=== PATIENT | male | born 1965 | race Caucasian/White ===

== ENCOUNTER 2017-01-07 10:09 | Outpatient (CLI) | payer MEDICARE, BC ==
[~2017-01-07] VITALS: Ht 165.1 cm; Wt 64.3 kg
[~2017-01-07 10:09] MED LIST: BENA20TA48 PO; BUPR150T18 PO; CHOL50009 PO; CLON2TAB3 PO; CYAN500T46 PO; FAMO-96 PO; FER325 PO; FLUO10TA PO; FLUR30CA12 PO; FOLI-49 PO; HYDR-3498 PO; HYDR-906 PO; INSU100C5 SQ; INSU100I14 SQ; MAG355OR15 PO; METO5TAB58 PO; MTF1000T PO; NEBI10TA2 PO; OMEP40CA6 PO; ONDA4TAB14 PO; ONDA4TAB8 PO; ROSU20TA PO
[2017-01-07 10:39] VITALS: BP 119/74; PULSE 86; RESP 16; Ht 165.1 cm; Wt 64.3 kg
[2017-01-07] MEDS ORDERED: NIFE30TA60 PO (11:10)
[2017-01-07] MEDS ORDERED: LIPA1CAP6 PO (11:10)
[2017-01-07] MEDS ORDERED: CLOP75TA27 PO (11:10)
[2017-01-07] MEDS ORDERED: CARV3.1260 PO (11:10)
[2017-01-07] MEDS ORDERED: LANT3I SC (11:10)
[2017-01-07] MEDS ORDERED: MEVA40 PO (11:10)
[2017-01-07] MEDS ORDERED: PIOG15TA21 PO (11:10)
[2017-01-07] MEDS ORDERED: FLUO20CA22 PO (11:10)
--- NOTE | 2017-01-07 13:11 | CONS ---
DATE OF ADMISSION: 01/07/2017 DATE OF CONSULTATION: 01/07/2017 [facility] INITIAL OUTPATIENT CONSULTATION NOTE PLACE OF SERVICE: [facility]. Dear Dr. Finley: Thank you very much for allowing us to participate in the care of this very pleasant gentleman and h is wonderful family. HISTORY OF PRESENT ILLNESS: The patient is a very pleasant 51-year-old gentleman being referred to us for management of abdominal pain with history of diabetes mellitus as well as chronic pancreatiti s since the year 1999, after the patient was hospitalized with coma and several strokes from unclear etiology, but reported 1 or 2-month history of heavy binge drinking after the of his mother. He has several comorbidities including diabetes mellitus, hypercholesterolemia, hypertension and th e above-mentioned pancreatitis. He has had images from at least 2014 that demonstrate a pancreatic pseudocyst area with calcifications, which on the most recent CT scan dated 10/16/2016 from [facility], shows to be 3.8 x 3.0 x 6.5 cm. There is partial rim calcification with small amount o f gas and probable fluid in addition to thick soft tissue rim that is inseparable from and likely ar ising from the pancreas tail. The overall impression of this was a pseudocyst. Pancreatic body was too small to characterize. Note that splenic vein was also not seen, and there were varices presen t. There is L4 fracture with anterior displacement of a component of the fracture. L4 vertebral shalom dy was also slightly sclerotic. Distal esophageal wall thickening was noted and no other major abno rmalities. Note that the patient fell about 8 days ago and hit the left side of his chest wall and per his own report was worked up through his primary care physician's office. He reports having diarrhea approx imately 20% of time and problems with constipation, perhaps 30% to 40% of the time, and normal bowel movements the rest of the time. Appetite is described as good. He has not reported significant we ight gain or weight loss and is able to eat his meals on a regular basis. He is not on pancreatic i nsufficiency medications, although he is on several medications and these were carefully reviewed in the electronic medical record system. He is taking pain medications on a fairly normal schedule wi breakfast, lunch and dinner. He is, however, on pancreatic enzyme replacement. He also takes na rcotics on a regular basis for pain. Multiple other medications are also recorded for his diabetes and other medical problems. The patient has been in and out of hospitals the emergency departments at least 2 or 3 times in the last 12 months. He has had recent endoscopy with you at [facility] as well. COMORBIDITIES: As mentioned above, the patient had several comorbidities that include diabetes nikki itus type 2, intractable abdominal pain as described above, diabetic gastroparesis, requiring Reglan at times, hypertension, dyslipidemia, depression, insomnia, anemia, gastroesophageal reflux disease and the above-mentioned history of strokes in 1999. He also had colonoscopy in December 2015 a nd ERCP at the same time, both with Dr. Michael Mccormick at [facility]. SOCIAL HISTORY: The patient is . He does not report any smoking or intravenous drug use. Francis reyna does report drinking on social occasions at this time, but did have an episode of binge drinking f or about a month at the time of his hospitalization at [facility] in 1999. That was complicated by several strokes, reported coma requiring ICU admission (details missing). FAMILY HISTORY: There is no mention of major medical, surgical or oncologic problems in the family as reported by the patient or noted in his chart. REVIEW OF SYSTEMS: Other than the above-mentioned, there are no other pertinent positives or pertin ent negatives in a complete 14-point review of systems. PHYSICAL EXAMINATION: GENERAL: The patient appears to be a very pleasant gentleman of descent, appeari ng stated age, sitting in a chair comfortably and in no acute distress. BMI is 23.6. He is afebril e. VITAL SIGNS: Stable. HEENT: Head is normocephalic and atraumatic. His extraocular muscles and hearing are grossly intac t bilaterally and symmetrically. His oral mucosa appear to be pink and moist. His dentition is ashley r to poor with multiple cavities that have been filled. NECK: Supple. There is no lymphadenopathy or JVD. There is no submental, submandibular or supracl avicular lymphadenopathy. CHEST: Rises symmetrically with each breath, and he is breathing comfortably. HEART: His pulse is palpable on the left wrist. His lower extremities contain no pitting edema ama und the ankles bilaterally and symmetrically. ABDOMEN: Soft, nondistended, and for the most part nontender, although he had some mild tenderness on left. upper quadrant which as ascribed to his recent fall and not so much in the abdomen itself. This was a different location than his usual reported pain which was mid upper epigastric. There is no evidence of organomegaly, caput medusae, engorged subcutaneous veins, or ascites. SKIN: Appears to be pink and feels warm to touch. NEUROLOGIC: He is awake, alert, and follows commands appropriately. LABORATORY VALUES: The most recent values are from 11/2016, that showed a lipase of 64, creatinine 0.58. Liver function and injury parameters were normal. Albumin 4.2, platelet count 160. IMAGING: Pertinent images were reviewed above. Note that I personally reviewed all the available i mages and I agree in general with their overall reported findings. 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 The appearance of the pseudocyst is stable since at least 2012 an d we are in the process of obtaining earlier images from [facility] if that is available to elma hickman. The patient certainly could have pain from this region as well as his splenic vein thrombos is and sinistral portal hypertension, but the extent of the pseudocyst is such that it appears to be within the mesentery of the splenic flexure of the colon. This may not be an easy distal pancreate ctomy and splenectomy, and for this reason, I have recommended that we obtain further information wi th the help of endoscopic ultrasound to delineate anatomy better as well as to evaluate for any pote ntial malignancy. I did mention to the patient that my suspicion for malignancy in this instance is extremely low and that most of his symptoms can be explained by his chronic pancreatitis. The rest of the pancreas is not very well visualized on the CT scan. There is a bit of swirling of the inte ronald around the superior mesenteric artery as well, and I am unclear of the significance of this i ssue, but it can be further elucidated by careful followup and imaging studies. At the moment, I do not recommend urgent or emergent surgical intervention, but I do believe that af ter endoscopic ultrasound evaluation, we can glean a better understanding of the patient's pathophys iology and perhaps offer surgery down the road. I also do believe that the patient's case is compli cated enough that an opinion from another experienced hepatopancreatic biliary surgeon would be extr scotty useful, as well as potential need for multidisciplinary tumor board presentation in that [facility]. I explained all of the above to the patient and her and answered all questions to the b est of my ability. The patient and family appeared to understand and agree with plans. With above assessments, I recommend the followin. Evaluation with endoscopic ultrasound and obtaining second opinion from an experienced HBV surge on. My recommendation is for the patient to be approved to see Dr. Sudarshan Blandon at [facility] and to get a second opinion from Dr. John Paul Vegas from the [facility]. This would be the most expeditious way of obtaining needed information and moving the care along . 2. Continue Creon for now. 3. Follow up with gastroenterology as well as with primary care physician. 4. Follow up with us after above is done. 5. Patient understands to keep me informed as to his condition and to call if any changes. Thank you again for allowing us to participate in the care of this very pleasant gentleman and his w onderful family. If there are any questions, please feel free to contact me at [phone]. Dictated By: DESTINEY CORDERO/ADORE Conf#: [id number] DID#: [id number] CC: ALONZO BERTRAND MD; KIRSTY FINLEY MD; Sage Bertrand MD;*EndCC*
== END 2017-01-07 17:00 | disposition home or self-care (01) ==
LOC: HPC 10:09
PROVIDERS: ATTEND Transplant Surgery
DX: K86.3 Pseudocyst of pancreas (principal); K86.1 Other chronic pancreatitis; R10.12 Left upper quadrant pain; E78.5 Hyperlipidemia, unspecified; E11.9 Type 2 diabetes mellitus without complications; Z91.81 History of falling
CPT/HCPCS: G0463